=== PATIENT | male | born 1985 | race Caucasian/White ===

== ENCOUNTER 2019-11-28 16:02 | Emergency (ER) | payer BC, SELFPAY ==
--- NOTE | 2019-11-28 16:18 | ER ---
Nurse's Notes [facility] Name: Elio Martínez Age: 34 yrs Sex: Male : 1985 Arrival Date: 11/28/2019 Time: 16:05 Bed 17 Private MD: Diagnosis: Panic disorder [episodic paroxysmal anxiety] without agoraphobia Presentation: 11/28 16:00 Acuity: DIANE 4 sv 16:00 Presenting complaint: EMS states: called out by PD for panic attack after caught sv stealing at a store and was being arrested. Pt reports not having any more methadone or xanax. On EMS arrival pt was hyperventilating, BS-88 BP 139/82 HR-69. Transition of care: patient was not received from another setting of care. Onset of symptoms was November 28, 2019. Risk Assessment: Do you want to hurt yourself or someone else? Patient reports no desire to harm self or others. Initial Sepsis Screen: Does the patient meet any 2 criteria? No. Patient's initial sepsis screen is negative. Does the patient have a suspected source of infection? No. Patient's initial sepsis screen is negative. Care prior to arrival: None. 16:00 Method Of Arrival: EMS: [facility] sv Triage Assessment: 16:00 General: Appears in no apparent distress. comfortable, well developed, Behavior is sv calm, cooperative, appropriate for age. Pain: Denies pain. Neuro: Level of Consciousness is awake, alert, obeys commands, Oriented to person, place, time, situation, Moves all extremities. Full function Gait is steady, Speech is normal. Respiratory: Airway is patent Respiratory effort is even, unlabored, Respiratory pattern is regular, symmetrical. Derm: Skin is intact. Musculoskeletal: Range of motion: intact in all extremities. Historical: - Allergies: 16:14 No Known Allergies; sv - Home Meds: 16:14 Methadone Oral [Active]; Xanax Oral [Active]; sv - PMHx: 16:14 Anxiety; sv - Immunization history:: Adult Immunizations up to date. - Coronavirus screen:: The patient has NOT traveled to [place], [place], or [place] in the past 14 days. Proceed with normal triage process as indicated. - Social history:: Smoking status: Patient denies any tobacco usage or history of. - Ebola Screening: : No symptoms or risks identified at this time. Screenin:00 Abuse screen: Denies threats or abuse. Denies injuries from another. Nutritional sv screening: No deficits noted. Tuberculosis screening: No symptoms or risk factors identified. Fall Risk None identified. Assessment: 16:54 Reassessment: Patient appears in no apparent distress at this time. No changes from sv previously documented assessment. Patient and/or family updated on plan of care and expected duration. Pain level reassessed. Patient is alert, oriented x 3, equal unlabored respirations, skin warm/dry/pink. Vital Signs: 16:13 BP 130 / 99; Pulse 85; Resp 16; Temp 97.3; Pulse Ox 99% ; Weight 89.81 kg; Height 5 ft. sv 10 in. (177.80 cm); Pain 0/10; 16:13 Body Mass Index 28.41 (89.81 kg, 177.80 cm) sv ED Course: 16:00 Patient has correct armband on for positive identification. Bed in low position. Call sv light in reach. Side rails up X2. PD at the bedside. Pulse ox on. NIBP on. Door closed. Head of bed elevated. 16:05 Patient arrived in ED. sv 16:06 Apolonia Robles RN is Primary Nurse. sv 16:09 Ranjit Mace FNP-C is PHCP. la1 16:09 Ortiz Patiño MD is Attending Physician. la1 16:10 Arm band placed on. sv 16:13 Triage completed. sv 16:17 PHCP role handed off by Ranjit Mace FNP-C [facility] 16:17 Christiano Giron PA is PHCP. [facility] 16:54 No provider procedures requiring assistance completed. Patient did not have IV access sv during this emergency room visit. Administered Medications: No medications were administered Outcome: 16:17 Discharge ordered by . jr8 16:54 Patient left the ED. sv 16:54 Discharged to Law Enforcement sv 16:54 Condition: stable 16:54 Discharge instructions given to patient, Instructed on discharge instructions, follow up and referral plans. Demonstrated understanding of instructions, follow-up care. Signatures: Apolonia Robles RN RN Christiano Giron PA PA jr8 Ranjit Mace FNP-C [facility]
--- NOTE | 2019-11-28 16:55 | EDPHYS ---
Physician Documentation [facility] Name: Elio Martínez Age: 34 yrs Sex: Male : 1985 Arrival Date: 11/28/2019 Time: 16:05 Bed 17 Private MD: ED Physician Ortiz Patiño HPI: 11/28 16:18 This 34 yrs old Male presents to ER via Unassigned with complaints of anxiety.jr8 16:18 The patient presents to the emergency department with anxiety, arrested today. Onset: jr8 The symptoms/episode began/occurred acutely, today. Past psychiatric history: Prior diagnosis: anxiety, Psychiatric medications include: Xanax. Associated signs and symptoms: The patient has no apparent associated signs or symptoms. Severity of symptoms: At their worst the symptoms were mild in the emergency department the symptoms are unchanged. The patient has experienced similar episodes in the past, several times. The patient has not recently seen a physician. Patient arrested today. Started to have panic attack. Was brought to ED for evaluation and clearance . Historical: - Allergies: 16:14 No Known Allergies; sv - Home Meds: 16:14 Methadone Oral [Active]; Xanax Oral [Active]; sv - PMHx: 16:14 Anxiety; sv - Immunization history:: Adult Immunizations up to date. - Coronavirus screen:: The patient has NOT traveled to [place], [place], or [place] in the past 14 days. Proceed with normal triage process as indicated. - Social history:: Smoking status: Patient denies any tobacco usage or history of. - Ebola Screening: : No symptoms or risks identified at this time. ROS: 16:18 Eyes: Negative for injury, pain, redness, and discharge, ENT: Negative for injury, jr8 pain, and discharge, Neck: Negative for injury, pain, and swelling, Cardiovascular: Negative for chest pain, palpitations, and edema, Respiratory: Negative for shortness of breath, cough, wheezing, and pleuritic chest pain, Abdomen/GI: Negative for abdominal pain, nausea, vomiting, diarrhea, and constipation, MS/Extremity: Negative for injury and deformity, Skin: Negative for injury, rash, and discoloration, Neuro: Negative for headache, weakness, numbness, tingling, and seizure. 16:18 Back: Positive for pain at rest, pain with movement. 16:18 Psych: Positive for anxiety. Exam: 16:18 Eyes: Pupils equal round and reactive to light, extra-ocular motions intact. Lids and jr8 lashes normal. Conjunctiva and sclera are non-icteric and not injected. Cornea within normal limits. Periorbital areas with no swelling, redness, or edema. ENT: Nares patent. No nasal discharge, no septal abnormalities noted. Tympanic membranes are normal and external auditory canals are clear. Oropharynx with no redness, swelling, or masses, exudates, or evidence of obstruction, uvula midline. Mucous membranes moist. Neck: Trachea midline, no thyromegaly or masses palpated, and no cervical lymphadenopathy. Supple, full range of motion without nuchal rigidity, or vertebral point tenderness. No Meningismus. Cardiovascular: Regular rate and rhythm with a normal S1 and S2. No gallops, murmurs, or rubs. Normal PMI, no JVD. No pulse deficits. Respiratory: Lungs have equal breath sounds bilaterally, clear to auscultation and percussion. No rales, rhonchi or wheezes noted. No increased work of breathing, no retractions or nasal flaring. Abdomen/GI: Soft, non-tender, with normal bowel sounds. No distension or tympany. No guarding or rebound. No evidence of tenderness throughout. Skin: Warm, dry with normal turgor. Normal color with no rashes, no lesions, and no evidence of cellulitis. MS/ Extremity: Pulses equal, no cyanosis. Neurovascular intact. Full, normal range of motion. Neuro: Awake and alert, GCS 15, oriented to person, place, time, and situation. Cranial nerves II-XII grossly intact. Motor strength 5/5 in all extremities. Sensory grossly intact. Cerebellar exam normal. Normal gait. Psych: Awake, alert, with orientation to person, place and time. Behavior, mood, and affect are within normal limits. Anxious and upset 16:18 Back: pain, that is mild, of the left low back and right low back, ROM is painful, normal spinal alignment noted, CVA tenderness, is absent. Vital Signs: 16:13 BP 130 / 99; Pulse 85; Resp 16; Temp 97.3; Pulse Ox 99% ; Weight 89.81 kg; Height 5 ft. sv 10 in. (177.80 cm); Pain 0/10; 16:13 Body Mass Index 28.41 (89.81 kg, 177.80 cm) MDM: 16:09 Patient medically screened. la1 16:18 Data reviewed: vital signs, nurses notes, and as a result, I will discharge patient. jr8 Data interpreted: Pulse oximetry: on room air is 99 %. Interpretation: normal. Counseling: I had a detailed discussion with the patient and/or guardian regarding: the historical points, exam findings, and any diagnostic results supporting the discharge/admit diagnosis, the need for outpatient follow up, a family practitioner, to return to the emergency department if symptoms worsen or persist or if there are any questions or concerns that arise at home. ED course: While being evaluate stated that he has also been having some low back pain. Patient without vertebral tenderness. No acute incident today. Can f/u for back pain. Administered Medications: No medications were administered Disposition: 11/29 07:17 Co-signature as Attending Physician, Ortiz Patiño MD I agree with the assessment and andres plan of care. Disposition: 11/28/19 16:17 Discharged to Law Enforcement. Impression: Panic disorder [episodic paroxysmal anxiety] without agoraphobia. - Condition is Stable. - Discharge Instructions: Panic Attacks. - Medication Reconciliation Form, Thank You Letter, Antibiotic Education, Prescription Opioid Use form. - Follow up: Private Physician; When: 2 - 3 days; Reason: Recheck today's complaints, Continuance of care, Re-evaluation by your physician. - Problem is new. - Symptoms have improved. Signatures: Apolonia Robles RN RN sv Anderson, Corey, MD MD cha Roszak, Josh, PA PA jr8 Ranjit Mace, WRAPPER LAYER-C [employer]-[facility] Corrections: (The following items were deleted from the chart) 11/28 16:54 16:17 11/28/2019 16:17 Discharged to Law Enforcement. Impression: Panic disorder sv [episodic paroxysmal anxiety] without agoraphobia. Condition is Stable. Forms are Medication Reconciliation Form, Thank You Letter, Antibiotic Education, Prescription Opioid Use. Follow up: Private Physician; When: 2 - 3 days; Reason: Recheck today's complaints, Continuance of care, Re-evaluation by your physician. Problem is new. Symptoms have improved. jr8
[2019-11-28 16:58] VITALS: BP 130/99; TEMP 97.3; O2SAT 99
== END 2019-11-28 16:54 ==
LOC: ER 16:02
DX: F41.0 Panic disorder [episodic paroxysmal anxiety] (principal)
CPT/HCPCS: 99283

== ENCOUNTER → 2023-11-27 | Emergency (ER) | payer SELFPAY ==
--- OUTSIDE RECORDS SUMMARY | 2023-11-27 20:39 | XMS REPORT | Continuity of Care Document ---
Author Name Unknown Address [address] [facility] [address] [place] [address] [facility] Address [address] [facility] [address] [place] [address] Care Team Providers [facility] Name Role Phone Sarai Monson Attending Clinician [phone] SARAI PATEL Attending Clinician Unavailable Payers Payer Name Policy Type Policy Number Effective Date Expirati on Date Source AGENCY GENERIC [id number] 2014 00:00:00 COMMERCIAL NON-CONTRACT GENERIC [id number] 2014 00:00:00 Problems Condition Name Condition Details Condition Category Status Onset Date Resolution Date Last Treatment Date Treating Clinician Comments Source No known active problems No known active problems Disease [facility] Allergies, Adverse Reactions, Alerts Allergy Name Allergy Type Status Severity Reaction(s) Onset Date Inactive Date Treating Clinician Comments Source NO KNOWN ALLERGIE S Drug Class Active [facility] Social History Social Habit Start Date Stop Date Quantity Comments Source Sex Assigned At [facility] Exposure to SARS-CoV-2 (event) Not sure [facility] Smoking Status Start Date Stop Date Source Unknown if ever smoked [facility] Medications Ordered Medication Name Filled Medication Name Start Date Stop Date Current Medication? Ordering Clinician Indication Dosage Frequency Signature (SIG) Comments Components Source ketorolac (TORADOL) injection 30 mg 06-23 19:15: 00 06-23 18:31 :00 No 30mg 30 mg, Slow IV Push, ONCE, 1 dose, 06/23/20 at 1415, EDWARD
Fa culty member approving Restricted medication : EMERGENCY ROOM, [facility] iohexol (OMNIPAQUE 350 BULK-100 mL) injection 100 mL 06-23 17:15: 00 06-23 17:01 :00 No 100mL 100 mL, Intravenou s, ONCE, 1 dose, 06/23/20 at 1215, Routine [facility] METHADONE HCL (METHADONE ORAL) 04-18 01:59: 00 Yes 110mg Take 110 mg by mouth. [facility] paroxetine (PAXIL) 40 mg tablet 04-18 01:59: 00 Yes 40mg Take 40 mg by mouth 2 (two) times daily. [facility] TRAZODONE HCL (TRAZODONE ORAL) 04-18 01:59: 00 Yes Take by mouth. [facility] NAPROXEN 250 MG ORAL TAB 2006-11 00:00: 00 Yes 1 tablet every 12 hrs for 10 days. may take up to 2 tabelts if pain persists [facility] Vital Signs Vital Name Observation Time Observation Value Comments S ource Systolic blood pressure 2020-06-23 18:30:00 138 mm[Hg] [facility] Diastolic blood pressure 2020-06-23 18:30:00 101 mm[Hg] [facility] Heart rate 2020-06-23 18:30:00 87 /min [facility] Respiratory rate 2020-06-23 18:30:00 18 /min [facility] Oxygen saturation in Arterial blood by Pulse oximetry 2020-06-23 18:30:00 97 /min [facility] Body temperature 2020-06-23 16:04:00 36.94 Eliza [facility] Body height 2020-06-23 16:04:00 177.8 cm [facility] Body weight 2020-06-23 16:04:00 83.462 kg [facility] BMI 2020-06-23 16:04:00 26.40 kg/m2 [facility] Procedures Procedure Date / Time Performed Performing Clinicia n Source CT SOFT TISSUE NECK W CONTRAST 2020-06-23 17:09:46 Sarai Patel [facility] COMP. METABOLIC PANEL ([id number]) 2020-06-23 16:25:00 Sarai Patel [facility] CBC WITH DIFF 2020-06-23 16:25:00 Sarai Patel [facility] RAPID STREP SCREEN FOR GROUP A 2020-06-23 16:25:00 Sarai Patel [facility] CONSENT/REFUSAL FOR DIAGNOSIS AND TREATMENT 2020-06-23 15:57:37 Doctor Unassigned, [place] [facility] NOTICE OF PRIVACY PRACTICES 2020-06-23 15:57:22 Doctor Unassigned, [place] [facility] Encounters Start Date/Time End Date/Time Encounter Type Admission Type Attending [facility] Care Department Encounter ID Source 2023-11-26 11:15:48 2023-11-26 11:15:48 Outpatient [facility] [id number] 2023-11-24 11:28:59 2023-11-24 11:28:59 Outpatient [facility] [id number] [address] 2023-11-15 09:07:58 2023-11-15 09:07:58 Outpatient [facility] [id number] [address] 2023-10-28 15:39:01 2023-10-28 15:39:01 Outpatient [facility] [id number] [address] 2023-09-30 16:40:44 2023-09-30 16:40:44 Outpatient [facility] [id number] 2023-08-31 10:08:40 2023-08-31 10:08:40 Outpatient [facility] [id number] [address] 2023-08-11 12:03:44 2023-08-11 12:03:44 Outpatient [facility] [id number] [address] Re[place] 2023-07-30 09:22:34 2023-07-30 09:22:34 Outpatient [facility] [id number] [address] [place] 2023-07-23 14:09:33 2023-07-23 14:09:33 Outpatient [facility] [id number] [address] Re[place] 2023-05-24 11:46:30 2023-05-24 11:46:30 Outpatient [facility] [id number] Bro Rea 2023-05-21 14:36:05 2023-05-21 14:36:05 Outpatient [facility] [id number] Bro Rea 2022-08-17 08:16:39 2022-08-17 08:16:39 Outpatient [facility] [id number] [address] Re[place] 2022-08-06 11:14:32 2022-08-06 11:14:32 Outpatient [facility] [id number] [address] 2020-06-23 11:06:00 2020-06-23 13:39:00 Emergency Sarai Patel [facility] [id number] [facility] 2020-06-23 11:06:00 2020-06-23 11:06:00 Emergency X SARAI PATEL [facility] ERT [id number] [facility] Results Test Description Test Time Test Comments Results Result Co mments Source COCAINE METAB, QUANT, [id number] 18:39:59* Test Item Value Reference Range Interpretation Comments BENZOYLECGONINE INTERP (test code = 39813) Positive A BENZOYLECGONINE QNT (test code = 46414) >2000 ng/mL <100 H Reference ra nge indicates cutoff for positive result determination. Specimen Type: Urine Urine drug and metabolite concentrations are dependent on manyfactors, including patient compliance, drug dosing, dosing interval,individual variation in drug absorption and metabolism, urineconcentration, and limitations of testing. Assay is intended formedical purposes only, not for forensic use. This test was developed and its performance characteristicsdetermined by [facility] ([facility]). It has not beencleared or approved by the U.S. Food and Drug Administration (FDA).The FDA has determined that such clearance or approval is notnecessary. This test is used for clinical purposes and should not beregarded as investigational or for research. [facility] is qualified toperform high complexity testing under the Clinical LaboratoryImprovement Amendments (CLIA). TESTING PERFORMED AT [facility] [address] [facility] [facility], [address], [address] [address] CLIA NO: [id number] BUPRENORPHINE, QUANT, [id number] 18:39:59* Test Item Value Reference Range Interpretation Comments BUPRENORPHINE INTERP (test code = 47964) Positive A BUPRENORPHINE QNT (test code = 13703) 145 ng/mL <5 H Reference range indicates cutoff for positive result determination. Specimen Type: Urine Urine drug and metabolite concentrations are dependent on manyfactors, including patient compliance, drug dosing, dosing interval,individual variation in drug absorption and metabolism, urineconcentration, and limitations of testing. Assay is intended formedical purposes only, not for forensic use. This test was developed and its performance characteristicsdetermined by [facility] ([facility]). It has not beencleared or approved by the U.S. Food and Drug Administration (FDA).The FDA has determined that such clearance or approval is notnecessary. This test is used for clinical purposes and should not beregarded as investigational or for research. [facility] is qualified toperform high complexity testing under the Clinical LaboratoryImprovement Amendments (CLIA). TESTING PERFORMED AT [facility] [address] [place] [address], [address] [place] [address] CLIA NO: [id number] UNLESS OTHERWISE INDICATED, ALL TESTING PERFORMED AT [facility] [address] [place] [address] [employer] WASH SUPERVISOR: JAZMYNE NAVARRETE M.D. CLIA NUMBER [id number] [facility] [place]. [id number] DRUG ABUSE SCREEN 10 REFLEX [id number] 04:46:37* Test Item Value Reference Range Interpretation Comments AMPHETAMINES (test code = 3201) NEGATIVE NEGATIVE BARBITURATES (test code = 3202) NEGATIVE NEGATIVE BENZODIAZEPINES (test code = 3203) SEE REFLEX TESTING NEGATIVE A CANNABINOIDS (test code = 3204) NEGATIVE NEGATIVE COCAINE METABOLITE (test code = 3205) SEE REFLEX TESTING NEGATIVE A OPIATES (test code = 3209) NEGATIVE NEGATIVE OXYCODONE (test code = 18510) NEGATIVE NEGATIVE PHENCYCLIDINE (test code = 3210) NEGATIVE NEGATIVE METHADONE (test code = 3207) NEGATIVE NEGATIVE BUPRENORPHINE (test code = 76649) SEE REFLEX TESTING NEGATIVE A SOURCE (test code = 462272) URINE SEE BELOW FO R THRESHOLDS AND IMPORTANT METHOD NOTES ANALYTE SCREENING CUTOFF CONFIRMATORY CUTOFF ___AMPHETAMINES 500 NG/ML 100 NG/MLBARBITURATES 200 NG/ML 100 NG/MLBENZODIAZEPINES 200 NG/ML 100 NG/MLCANNABINOIDS (THC) 20 NG/ML 15 NG/MLCOCAINE METABOLITES 150 NG/ML 100 NG/MLOPIATE METABOLITES 300 NG/ML 100 NG/MLOXYCODONE 100 NG/ML 100 NG/MLPHENCYCLIDINE (PCP) 25 NG/ML 25 NG/MLMETHADONE 300 NG/ML 100 NG/MLBUPRENORPHINE 5 NG/ML 5 NG/ML NOTE: Screening methodology is qualitative Enzyme Immunoassay.The screening method may be less sensitive for certain medicationsincluding clonazepam and lorazepam in the benzodiazepine assay andtramadol or fentanyl in the opiate assay, amongst others. Patientcompliance, hydration status, timing and dose of medications, drugabsorption and specimen quality may affect screening assay.For clinical discrepancies, consider directed testing for specificcompounds or contact the laboratory [facility]. This test is specified for medicalpurposes only. It is not valid for forensic use. BUPRENORPHINE, QUANT, [id number] 10:27:36* Test Item Value Reference Range Interpretation Comments BUPRENORPHINE INTERP (test code = 15351) Positive A BUPRENORPHINE QNT (test code = 61437) 8 ng/mL <5 H Reference range indicates cutoff for positive result determination. Specimen Type: Urine Urine drug and metabolite concentrations are dependent on manyfactors, including patient compliance, drug dosing, dosing interval,individual variation in drug absorption and metabolism, urineconcentration, and limitations of testing. Assay is intended formedical purposes only, not for forensic use. This test was developed and its performance characteristicsdetermined by [facility] ([facility]). It has not beencleared or approved by the U.S. Food and Drug Administration (FDA).The FDA has determined that such clearance or approval is notnecessary. This test is used for clinical purposes and should not beregarded as investigational or for research. [facility] is qualified toperform high complexity testing under the Clinical LaboratoryImprovement Amendments (CLIA). TESTING PERFORMED AT [facility] [address] [place] [address], [address], [address] [address] CLIA NO: [id number] UNLESS OTHERWISE INDICATED, ALL TESTING PERFORMED AT [facility] [address] [place] [address] [employer] SUPERVISOR: JAZMYNE NAVARRETE M.D. CLIA NUMBER [id number] [place]. [id number] DRUG ABUSE SCREEN 10 REFLEX [id number] 04:53:08* Test Item Value Reference Range Interpretation Comments AMPHETAMINES (test code = 3201) NEGATIVE NEGATIVE BARBITURATES (test code = 3202) NEGATIVE NEGATIVE BENZODIAZEPINES (test code = 3203) NEGATIVE NEGATIVE CANNABINOIDS (test code = 3204) NEGATIVE NEGATIVE COCAINE METABOLITE (test code = 3205) NEGATIVE NEGATIVE OPIATES (test code = 3209) NEGATIVE NEGATIVE OXYCODONE (test code = 74410) NEGATIVE NEGATIVE PHENCYCLIDINE (test code = 3210) NEGATIVE NEGATIVE METHADONE (test code = 3207) NEGATIVE NEGATIVE BUPRENORPHINE (test code = 28210) SEE REFLEX TESTING NEGATIVE A SOURCE (test code = 049493) URINE SEE BELOW FO R THRESHOLDS AND IMPORTANT METHOD NOTES ANALYTE SCREENING CUTOFF CONFIRMATORY CUTOFF ___AMPHETAMINES 500 NG/ML 100 NG/MLBARBITURATES 200 NG/ML 100 NG/MLBENZODIAZEPINES 200 NG/ML 100 NG/MLCANNABINOIDS (THC) 20 NG/ML 15 NG/MLCOCAINE METABOLITES 150 NG/ML 100 NG/MLOPIATE METABOLITES 300 NG/ML 100 NG/MLOXYCODONE 100 NG/ML 100 NG/MLPHENCYCLIDINE (PCP) 25 NG/ML 25 NG/MLMETHADONE 300 NG/ML 100 NG/MLBUPRENORPHINE 5 NG/ML 5 NG/ML NOTE: Screening methodology is qualitative Enzyme Immunoassay.The screening method may be less sensitive for certain medicationsincluding clonazepam and lorazepam in the benzodiazepine assay andtramadol or fentanyl in the opiate assay, amongst others. Patientcompliance, hydration status, timing and dose of medications, drugabsorption and specimen quality may affect screening assay.For clinical discrepancies, consider directed testing for specificcompounds or contact the laboratory within specimen stability toforward for confirmatory testing. This test is specified for medicalpurposes only. It is not valid for forensic use. COMPREHENSIVE METABOLIC [id number] 06:06:05* Test Item Value Reference Range Interpretation Comme nts GLUCOSE (test code = 2216) 89 MG/DL 70-99 BUN (test code = 2207) 13 MG/DL 6-20 CREATININE (test code = 2213) 0.85 MG/DL 0.80-1.40 eGFR (2020 CKD-EPI) (test code = 16332) 115 ML/MIN/1.73 >60 CALC BUN/CREAT (test code = 2234) 15 RATIO 6-28 SODIUM (test code = 223) 141 MEQ/L 133-146 POTASSIUM (test code = 222) 4.3 MEQ/L 3.5-5.4 CHLORIDE (test code = 2214) 101 MEQ/L 95-107 CARBON DIOXIDE (test code = 2205) 27 MEQ/L 19-31 CALCIUM (test code = 2209) 9.4 MG/DL 8.5-10.5 PROTEIN, TOTAL (test code = 2228) 7.6 G/DL 6.1-8.3 ALBUMIN (test code = 2200) 5.1 G/DL 3.5-5.2 CALC GLOBULIN (test code = 2240) 2.5 G/DL 1.9-3.7 CALC A/G RATIO (test code = 2233) 2.0 RATIO 1.0-2.6 BILIRUBIN, TOTAL (test code = 2206) 0.5 MG/DL <=1.2 ALKALINE PHOSPHATASE (test code = 2204) 77 U/L 40-117 AST (test code = 2218) 17 U/L 9-50 ALT (test code = 2219) 21 U/L 5-50 CBC W/AUTO DIFF WITH [id number] 04:56:45* Test Item Value Reference Range Interpretation Comme nts WBC (test code = 1001) 7.4 K/UL 3.5-11.0 RBC (test code = 1002) 5.19 M/UL 4.50-6.10 HEMOGLOBIN (test code = 1003) 16.1 G/DL 13.5-17.0 HEMATOCRIT (test code = 1004) 45.9 % 40.0-51.0 MCV (test code = 1005) 88.4 fL 80.0-99.0 MCH (test code = 1006) 31.0 PG 25.0-33.0 MCHC (test code = 1007) 35.1 G/DL 31.0-36.0 RDW (test code = 1038) 12.4 % 11.5-15.0 NEUTROPHILS (test code = 1008) 71.3 % LYMPHOCYTES (test code = 1010) 21.7 % MONOCYTES (test code = 1011) 5.9 % EOSINOPHILS (test code = 1012) 0.3 % BASOPHILS (test code = 1013) 0.5 % IMMATURE GRANULOCYTES (test code = 1036) 0.3 % NUCLEATED RBCS (test code = 1065) 0.0 /100 WBC'S See_Comment [Automated Aiotraa ge] The system which generated this result transmitted reference range: 0.0. The reference range was not used to interpret this result as normal/abnormal. PLATELET COUNT (test code = 1015) 333 K/UL 130-400 ABSOLUTE NEUTROPHILS (test code = 1066) 5.30 K/UL 1.50-7.50 ABSOLUTE LYMPHOCYTES (test code = 1067) 1.61 K/UL 1.00-4.00 ABSOLUTE MONOCYTES (test code = 1068) 0.44 K/UL 0.20-1.00 ABSOLUTE EOSINOPHILS (test code = 1040) 0.02 K/UL 0.00-0.50 ABSOLUTE BASOPHILS (test code = 1069) 0.04 K/UL 0.00-0.20 ABS IMMATURE GRANULOCYTES (test code = 1020) 0.02 K/UL 0.00-0.10 ABS NUCLEATED RBCS (test code = 48857) 0.00 K/UL 0.00-0.11 HIV 1/2 4TH GEN, RFLX [id number] 04:06:54* Test Item Value Reference Range Interpretation Comme nts HIV 1/2 4TH GEN, RFLX CONF ( test code = 3514) NON-REACTIVE NON-REACTIVE HEPATITIS PANEL, [id number] 04:06:54* Test Item Value Reference Range Interpretation Comme nts HEPATITIS A IgM (test code = 36746) NON-REACTIVE NON-REACTIVE HEPATITIS B CORE IgM (test code = 4644) NON-REACTIVE NON-REACTIVE HEPATITIS B SURF AG (test code = 2739) NON-REACTIVE NON-REACTIVE HEPATITIS C ANTIBODY (test code = 4675) NON-REACTIVE NON-REACTIVE INTERPRETATION HEPATITIS A: (test code = 2552) (NOTE) Hepatitis A sero logy shows no evidence of acute hepatitis A. INTERPRETATION HEPATITIS B: (test code = 58870) (NOTE) Hepatitis B sero logy shows no evidence of acute hepatitis B andno indication of exposure to hepatitis B virus in the previous dax eight months. INTERPRETATION HEPATITIS C: (test code = 73563) (NOTE) Hepatitis C sero logy shows no evidence of exposure to hepatitisC virus at this time. It can take up to 12 months after exposure tothe hepatitis C virus for antibodies to become detectable in the blood in certain patients. UNLESS OTHERWISE INDICATED, ALL TESTING PERFORMED AT [facility] [address] [place] [address] [employer] WASH SUPERVISOR: JAZMYNE NAVARRETE M.D. [place] NUMBER [id number] [facility] [place]. [id number] CBC W/AUTO DIFF WITH [id number] 04:09:54* Test Item Value Reference Range Interpretation Comme nts WBC (test code = 1001) 4.7 K/UL 3.5-11.0 RBC (test code = 1002) 4.69 M/UL 4.50-6.10 HEMOGLOBIN (test code = 1003) 14.1 G/DL 13.5-17.0 HEMATOCRIT (test code = 1004) 39.8 % 40.0-51.0 L MCV (test code = 1005) 84.9 fL 80.0-99.0 MCH (test code = 1006) 30.1 PG 25.0-33.0 MCHC (test code = 1007) 35.4 G/DL 31.0-36.0 RDW (test code = 1038) 13.3 % 11.5-15.0 NEUTROPHILS (test code = 1008) 52.2 % LYMPHOCYTES (test code = 1010) 37.5 % MONOCYTES (test code = 1011) 7.8 % EOSINOPHILS (test code = 1012) 1.5 % BASOPHILS (test code = 1013) 0.8 % IMMATURE GRANULOCYTES (test code = 1036) 0.2 % NUCLEATED RBCS (test code = 1065) 0.0 /100 WBC'S See_Comment [Automated messa ge] The system which generated this result transmitted reference range: 0.0. The reference range was not used to interpret this result as normal/abnormal. PLATELET COUNT (test code = 1015) 252 K/UL 130-400 ABSOLUTE NEUTROPHILS (test code = 1066) 2.46 K/UL 1.50-7.50 ABSOLUTE LYMPHOCYTES (test code = 1067) 1.77 K/UL 1.00-4.00 ABSOLUTE MONOCYTES (test code = 1068) 0.37 K/UL 0.20-1.00 ABSOLUTE EOSINOPHILS (test code = 1040) 0.07 K/UL 0.00-0.50 ABSOLUTE BASOPHILS (test code = 1069) 0.04 K/UL 0.00-0.20 ABS IMMATURE GRANULOCYTES (test code = 1020) 0.01 K/UL 0.00-0.10 ABS NUCLEATED RBCS (test code = 83778) 0.00 K/UL 0.00-0.11 HIV 1/2 4TH GEN, RFLX [id number] 03:35:02* Test Item Value Reference Range Interpretation Comme nts HIV 1/2 4TH GEN, RFLX CONF ( test code = 3514) NON-REACTIVE NON-REACTIVE HEPATITIS PANEL, [id number] 03:35:02* Test Item Value Reference Range Interpretation Comme nts HEPATITIS A IgM (test code = 22607) NON-REACTIVE NON-REACTIVE HEPATITIS B CORE IgM (test code = 4644) NON-REACTIVE NON-REACTIVE HEPATITIS B SURF AG (test code = 2739) NON-REACTIVE NON-REACTIVE HEPATITIS C ANTIBODY (test code = 4675) NON-REACTIVE NON-REACTIVE INTERPRETATION HEPATITIS A: (test code = 2552) (NOTE) Hepatitis A sero logy shows no evidence of acute hepatitis A. INTERPRETATION HEPATITIS B: (test code = 58132) (NOTE) Hepatitis B sero logy shows no evidence of acute hepatitis B andno indication of exposure to hepatitis B virus in the previous dax eight months. INTERPRETATION HEPATITIS C: (test code = 11676) (NOTE) Hepatitis C sero logy shows no evidence of exposure to hepatitisC virus at this time. It can take up to 12 months after exposure tothe hepatitis C virus for antibodies to become detectable in the blood in certain patients. UNLESS OTHERWISE INDICATED, ALL TESTING PERFORMED [facility] [address] [place] [address] [employer] SUPERVISOR: KAYLYN ORELLANA M.D. [place] NUMBER [id number] [facility] [place]. [id number] COMPREHENSIVE METABOLIC [id number] 03:18:29* Test Item Value Reference Range Interpretation Comme nts GLUCOSE (test code = 2217) 108 MG/DL 70-99 H BUN (test code = 220) 12 MG/DL 6-20 CREATININE (test code = 221) 0.77 MG/DL 0.80-1.40 L eGFR (2020 CKD-EPI) (test code = 12985) 120 ML/MIN/1.73 >60 CALC BUN/CREAT (test code = 2235) 16 RATIO 6-28 SODIUM (test code = 223) 144 MEQ/L 133-146 POTASSIUM (test code = 2228) 4.4 MEQ/L 3.5-5.4 CHLORIDE (test code = 2215) 104 MEQ/L 95-107 CARBON DIOXIDE (test code = 2206) 27 MEQ/L 19-31 CALCIUM (test code = 2209) 8.8 MG/DL 8.5-10.5 PROTEIN, TOTAL (test code = 2229) 7.3 G/DL 6.1-8.3 ALBUMIN (test code = 2201) 4.8 G/DL 3.5-5.2 CALC GLOBULIN (test code = 2240) 2.5 G/DL 1.9-3.7 CALC A/G RATIO (test code = 2234) 1.9 RATIO 1.0-2.6 BILIRUBIN, TOTAL (test code = 2207) 0.2 MG/DL See_Comment [Automated me ssage] The system which generated this result transmitted reference range: <=1.2. The reference range was not used to interpret this result as normal/abnormal. ALKALINE PHOSPHATASE (test code = 2204) 63 U/L 40-112 AST (test code = 2218) 31 U/L 9-50 ALT (test code = 2219) 37 U/L 5-50 CT SOFT TISSUE NECK W [id number] 17:47:36No acute abnormality is identified. Preliminary Report Dictated by Resident: Peter Stephens I, Genaro Mitchell MD., have reviewed this study and agree with theabove report.CT SOFT TISSUE NECK W CONTRAST HISTORY: neck pain / throat pain. Patient reports he has a hx thyroidismand has notice a increase growth in his throat making it more difficult toswallow. Onset 4-5 months COMPARISON: None. Technique: Contiguous axial CT imaging of the neck with IV contrast wasperformed. Coronal and sagittal reformats were obtained. FINDINGS: The nasopharynx, oropharynx, hypopharynx and larynx are patent withoutasymmetric soft tissue density. The trachea and cervical esophagus areunremarkable. The visualized portions of the oral tongue and floor of mouth areunremarkable. The parotid and submandibular salivary glands are unremarkable. No stone isseen along the course of the Chauncey or Brit duct. The thyroid gland isunremarkable. No pathologically enlarged or morphologically suspicious cervical lymphnodes are present. The visualized lung apices are clear. [facility], Radiant Results Inft User - 06/23/2020 12:48 PM CDTCT SOFT TISSUE NECK W CONTRASTHISTORY: neck pain / throat pain. Patient reports he has a hx thyroidismand has notice a increase growth in his throat making it more difficult toswallow. Onset 4-5 monthsCOMPARISON: None.Technique: Contiguous axial CT imaging of the neck with IV contrast wasperformed. Coronal and sagittal reformats were obtained.FINDINGS:The nasopharynx, oropharynx,hypopharynx and larynx are patent withoutasymmetric soft tissue density. The trachea and cervical esophagus areunremarkable.The visualized portions of the oral tongue and floor of mouth areunremarkable.The parotid and submandibular salivary glands are unremarkable. No stone isseen along the course of the Chauncey or Brit duct. The thyroid gland isunremarkable.No pathologically enlarged or morpho logically suspicious cervical lymphnodes are present.The visualized lung apices are clear.IMPRESSIONNo acute abnormality is identified.Preliminary Report Dictated by Resident: Peter Harrell, Genaro Mitchell MD., have reviewed this study and agree with theabove report.[facility] RAPID STREP SCREEN FOR GROUP [id number] 16:57:00* Test Item Value Reference Range Interpretation Comme nts Streptococcus pyogenes (grou p A) antigen (test code = 07716-4) Negative Negative Lab Interpretation (test cod e = 31280-0) Normal [facility] PAN[facility] ([id number])2020-06-23 16:48:00* Test Item Value Reference Range Interpretation Comme nts NA (test code = 4816702861) 135 mmol/L 135-145 K (test code = 5540142570) 4.1 mmol/L 3.5-5 CL (test code = 6233698974) 97 mmol/L 98-108 L CO2 TOTAL (test code = 3543673761) 29 mmol/L 23-31 AGAP (test code = 5969102465) 2-16 BUN (test code = 9395807099) 10 mg/dL 7-23 GLUCOSE (test code = 5502192712) 102 mg/dL 70-110 CREATININE (test code = 4095187948) 0.68 mg/dL 0.6-1.25 TOTAL BILI (test code = 9795762641) 0.8 mg/dL 0.1-1.1 CALCIUM (test code = 9534341671) 9.3 mg/dL 8.6-10.6 T PROTEIN (test code = 3705715173) 7.7 g/dL 6.3-8.2 ALBUMIN (test code = 8903906477) 4.9 g/dL 3.5-5 ALK PHOS (test code = 8497426191) 69 U/L 34-122 ALTv (test code = 1742-6) 14 U/L 5-50 AST(SGOT) (test code = 5586139501) 24 U/L 13-40 eGFR Calculation (Non-) (test code = 9255218800) mL/min/1.73m2 eGFR Calculation () (test code = 9187826383) mL/min/1.73m2 XENIA (test code = XENIA) Association of Glomerular Filtration Rate (GFR) and Staging of Kidney Disease* + --+ --+ ------+| GFR (mL/min/1.73 m2) ?| With Kidney Damage ?| ?Without Kidney Damage+ --------+ --------+ +| ?>90 ?| ?Stage one ?| ? Normal ?+ ---+ ---+ -------+| ?60-89 ?| ?Stage two ?| ? Decreased GFR ? + --+ --+ ------+| ?30-59 ?| ?Stage three ?| ? Stage three ? + --+ --+ ------+| ?15-29 ?| ?Stage four ? | ? Stage four ?+ ---+ ---+ -------+| ?<15 (or dialysis) ? ?| ?Stage five ? | ? Stage five ?+ ---+ ---+ -------+ *Each stage assumes the associated GFR level has been in effect for at least three months. ?Stages 1 to 5, with or without kidney disease, indicate chronic kidney disease. Notes: Determination of stages one and two (with eGFR >59mL/min/1.73 m2) requires estimation of kidney damage for at least three months as defined by structural or functional abnormalities of the kidney, manifested by either:Pathological abnormalities or Markers of kidney damage (including abnormalities in the composition of the blood or urine or abnormalities in imaging tests). Lab Interpretation (test code = 41228-6) Abnormal [facility] with [id number] 16:33:00* Test Item Value Reference Range Interpretation Comme nts WBC (test code = 6690-2) See_Comment [[employer]] The system which generated this result transmitted reference range: 4.20 - 10.70 10*3/?L. The reference range was not used to interpret this result as normal/abnormal. RBC (test code = 789-8) See_Comment [[employer]] The system which generated this result transmitted reference range: 4.26 - 5.52 10*6/?L. The reference range was not used to interpret this result as normal/abnormal. HGB (test code = 718-7) 15.0 g/dL 12.2-16.4 HCT (test code = 4544-3) 43.7 % 38.4-49.3 MCV (test code = 787-2) 87.9 fL 81.7-95.6 MCH (test code = 785-6) 30.2 pg 26.1-32.7 MCHC (test code = 786-4) 34.3 g/dL 31.2-35 RDW-SD (test code = 08501-0) 40.6 fL 38.5-51.6 RDW-CV (test code = 788-0) 12.7 % 12.1-15.4 PLT (test code = 777-3) See_Comment [Automated messa ge] The system which generated this result transmitted reference range: 150 - 328 10*3/?L. The reference range was not used to interpret this result as normal/abnormal. MPV (test code = 40204-4) 9.5 fL 9.8-13 L NRBC/100 WBC (test code = 4610863115) See_Comment [Automated [place] ssage] The system which generated this result transmitted reference range: 0.0 - 10.0 /100 WBCs. The reference range was not used to interpret this result as normal/abnormal. NRBC x10^3 (test code = 4802938194) <0.01 See_Comment [Automated messa ge] The system which generated this result transmitted reference range: 10*3/?L. The reference range was not used to interpret this result as normal/abnormal. GRAN MAT (NEUT) % (test code = 770-8) 69.1 % IMM GRAN % (test code = 9853369104) 0.30 % LYMPH % (test code = 736-9) 25.0 % MONO % (test code = 5905-5) 5.2 % EOS % (test code = 713-8) 0.2 % BASO % (test code = 706-2) 0.2 % GRAN MAT x10^3(ANC) (test code = 0058605580) 4.41 10*3/uL 1.99-6.95 IMM GRAN x10^3 (test code = 1465350950) <0.03 0-0.06 LYMPH x10^3 (test code = 731-0) 1.59 10*3/uL 1.09-3.23 MONO x10^3 (test code = 742-7) 0.33 10*3/uL 0.36-1.02 L EOS x10^3 (test code = 711-2) <0.03 0.06-0.53 L BASO x10^3 (test code = 704-7) <0.03 0.01-0.09 Lab Interpretation (test code = 59128-6) Abnormal [facility]"
== END ==
LOC: ER 20:36
DX: Z02.9 Encounter for administrative examinations, unspecified (principal)